=== PATIENT | female | born 1995 | race Caucasian/White ===

== ENCOUNTER 2016-09-15 21:34 | Emergency (ER) | payer OTHER ==
[~2016-09-15] VITALS: Ht 157.5 cm; Wt 52.2 kg
[2016-09-15 21:35] VITALS: BP 121/83
[2016-09-15] MEDS ORDERED: VYVA60CA PO (21:49)
[2016-09-16] MEDS ORDERED: METHOCARBAMOL 500 MG TAB PO ONE (02:00)
[2016-09-16] MEDS ORDERED: ACETAMINOPHEN 325 MG TAB PO ONE (02:00)
== END 2016-09-16 02:19 | disposition left against medical advice (07) ==
LOC: M ED 22:50
DX: R51 Headache (principal); M54.2 Cervicalgia; V43.52XA Car driver injured in collision with other type car in traffic accident, initial encounter; Y92.9 Unspecified place or not applicable; Y93.9 Activity, unspecified; Y99.9 Unspecified external cause status

== ENCOUNTER → 2018-08-31 | Outpatient (REF) | payer OTHER ==
[~2018-08-31] MED LIST: VYVA60CA PO
[2018-08-31 22:45] LABS: CHLAMYDIA DNA AMPLIFICATION NEGATIVE (NEGATIVE); GC DNA AMPLIFICATION NEGATIVE (NEGATIVE)
== END ==
LOC: M LAB REF 11:45
PROVIDERS: ATTEND Physician Assistant
DX: R30.0 Dysuria (principal)

== ENCOUNTER 2018-10-17 11:04 | Day surgery (SDC) | payer OTHER ==
[~2018-10-17] VITALS: Ht 157.5 cm; Wt 60.8 kg
[~2018-10-17 11:04] MED LIST changes: +AMBI12.52 PO; +KETOROLAC 60 MG/2 ML VIAL (J1885) As Ordered ONE; +LIDOCAINE 2% INJ 100 MG/5 ML SDV (FOR ANES.) As Ordered ONE; +MIDAZOLAM INJ 2 MG/2 ML VIAL (J2250) As Ordered ONE; +OCEL3TAB PO; +ONDANSETRON 4MG/2ML VIAL (J2405) As Ordered ONE; +PROPOFOL 200 MG/20 ML VIAL As Ordered ONE; +PROZ40CA PO; +dexameTHASONE 4 MG/ML 1ML VIAL (J1100) As Ordered ONE; +fentaNYL 100 MCG/2 ML INJECTION (J3010) As Ordered ONE; +fentaNYL 250 MCG/5 ML INJECTION (J3010) As Ordered ONE
[2018-10-17 11:26] LABS: HEMATOCRIT 41.9 % (36.0-47.0); HEMOGLOBIN 14.1 g/dl (12.0-15.5); MEAN CORPUSCULAR HEMOGLOBIN 31.8 pg (27.0-33.0); MEAN CORPUSCULAR HGB CONC 33.7 g/dl (32.0-36.5); MEAN CORPUSCULAR VOLUME 94.6 fl (80.0-96.0); PLATELET COUNT, AUTOMATED 253 10^3/uL (150-450); RED BLOOD COUNT 4.43 10^6/uL (4.00-5.40); WHITE BLOOD COUNT 7.8 10^3/uL (4.0-10.0)
[2018-10-17 12:05] LABS: HCG, SERUM QUALITATIVE NEGATIVE (NEGATIVE)
[2018-10-17] MEDS ORDERED: LIDOCAINE W/EPINEPHRINE 1% 20ML VIAL As Ordered ONE (12:32)
[2018-10-17] MEDS ORDERED: IODINE STRONG SOLN 15 ML BTL As Ordered ONE (13:15)
[2018-10-17] MEDS ORDERED: SILVER NITRATE APPLICATOR As Ordered ONE (13:18)
[2018-10-17] MEDS ORDERED: ePHEDrine SULFATE 25 MG/5 ML(5MG/ML) SYRINGE As Ordered ONE (13:21)
[2018-10-17] MEDS ORDERED: METOCLOPRAMIDE INJ 10MG/2ML VIAL (J2765) As Ordered ONE (13:28)
[2018-10-17] MEDS ORDERED: METOCLOPRAMIDE INJ 10MG/2ML VIAL (J2765) IV PRN (14:00)
[2018-10-17] MEDS ORDERED: fentaNYL 100 MCG/2 ML INJECTION (J3010) IV PRN (14:00)
[2018-10-17] MEDS ORDERED: LR 1,000 ML IV SCH (14:00)
[2018-10-17] MEDS ORDERED: PERCOCET 5MG/325MG TAB PO PRN ×2 (14:00)
[2018-10-17] MEDS ORDERED: ONDANSETRON 4MG/2ML VIAL (J2405) IV PRN (14:00)
[2018-10-17] MEDS ORDERED: IBUPROFEN 800 MG TAB PO ONE (15:00)
[2018-10-17 15:35] VITALS: BP 118/65
--- NOTE | 2018-10-18 14:04 | RO ---
DATE OF PROCEDURE: 10/17/2018 PREPROCEDURE DIAGNOSES: Cervical dysplasia and persistent HSIL and perineal skin tags. POSTPROCEDURE DIAGNOSES: Cervical dysplasia and persistent HSIL and perineal skin tags. PROCEDURE: Perineal skin tag excision and loop electrosurgical excision procedure on the cervix. SURGEON: Dr. German Cottrell HOSPICE COORDINATOR: None. ANESTHESIA: General. FLUIDS: 400 mL of lactated Ringers. URINE OUTPUT: 0 mL, the patient voided prior to the case. ESTIMATED BLOOD LOSS: 2 mL. COMPLICATIONS: None. DESCRIPTION OF PROCEDURE: The risks, benefits, indications and alternatives of the procedure were reviewed with the patient and informed consent was obtained. The patient was taken to the operating room where general anesthesia was obtained without difficulty. The patient was then placed in the lithotomy position using Roni stirrups. An examination under anesthesia was then performed, which revealed a normal anteverted uterus. The patient was then prepped and draped in the usual sterile fashion. A surgical time out was then performed where the patient's identity and planned procedure were verified with the operating team. The patient's perineum was inspected. Two small skin tags were identified. Lidocaine with epinephrine were then injected below each skin tag at the base. The skin tags were then removed with Noel scissors and sent to pathology for review. The excision sites were then treated with silver nitrate sticks and hemostasis was achieved. A sterile speculum was then placed in the patient's vagina and the cervix was visualized. A paracervical block was then performed using approximately 10 mL of Lidocaine with epinephrine. Lugol's solution was then copiously applied to the cervix which highlighted the lesion from the 6 to the 8 o'clock position of the cervix along the ectocervix. The LEEP device was then set to 60/60 blend and activated. A looped electrocautery wire was then passed across the external cervical os with a single pass to obtain an ectocervical specimen. Another pass was then performed at the posterior portion of the ectocervix to ensure all abnormal tissue was removed. All tissue obtained was sent to pathology for review. Superficial electrocoagulation of the cervical stroma was then performed with excellent hemostasis achieved. Monsel' solution was then applied to the cervix. All instruments were then removed from the patient's vagina. At the conclusion of the case, the sponge, instrument and needle counts were correct times three. The patient tolerated the procedure well and was taken to the postanesthesia care unit (PACU) in stable condition. CARLITOS
== END 2018-10-17 15:45 | disposition home or self-care (01) ==
LOC: M SDC 11:04
PROVIDERS: ATTEND Obstetrics & Gynecology
DX: N87.9 Dysplasia of cervix uteri, unspecified (principal); L98.8 Other specified disorders of the skin and subcutaneous tissue; R87.613 High grade squamous intraepithelial lesion on cytologic smear of cervix (HGSIL); K21.9 Gastro-esophageal reflux disease without esophagitis; F90.9 Attention-deficit hyperactivity disorder, unspecified type; F32.9 Major depressive disorder, single episode, unspecified; R05 Cough; Z79.899 Other long term (current) drug therapy
CPT/HCPCS: 11200; 36415; 57522; 84703; 85027; 88305; 88307; J1100; J1885; J2250; J2405; J2765; J3010

== ENCOUNTER 2019-03-02 09:53 | Emergency (ER) | payer MEDICAID, OTHER ==
[~2019-03-02] VITALS: Ht 157.5 cm; Wt 72.0 kg
[~2019-03-02 09:53] MED LIST changes: -KETOROLAC 60 MG/2 ML VIAL (J1885) As Ordered ONE; -LIDOCAINE 2% INJ 100 MG/5 ML SDV (FOR ANES.) As Ordered ONE; -MIDAZOLAM INJ 2 MG/2 ML VIAL (J2250) As Ordered ONE; -ONDANSETRON 4MG/2ML VIAL (J2405) As Ordered ONE; -PROPOFOL 200 MG/20 ML VIAL As Ordered ONE; -dexameTHASONE 4 MG/ML 1ML VIAL (J1100) As Ordered ONE; -fentaNYL 100 MCG/2 ML INJECTION (J3010) As Ordered ONE; -fentaNYL 250 MCG/5 ML INJECTION (J3010) As Ordered ONE
[2019-03-02] MEDS ORDERED: ACETAMINOPHEN 325 MG TAB PO ONE (10:45)
[2019-03-02 11:01] LABS: BASO % 0.2 % (0.0-1.0); EOS # 0.1 10^3/uL (0.0-0.5); EOS % 1.2 % (0.0-3.0); HEMATOCRIT 38.9 % (36.0-47.0); HEMOGLOBIN 13.1 g/dl (12.0-15.5); LYMPH # 1.6 10^3/uL (1.5-5.0); LYMPH % 25.5 % (24.0-44.0); MEAN CORPUSCULAR HEMOGLOBIN 31.8 pg (27.0-33.0); MEAN CORPUSCULAR HGB CONC 33.7 g/dl (32.0-36.5); MEAN CORPUSCULAR VOLUME 94.4 fl (80.0-96.0); MONO # 0.6 10^3/uL (0.0-0.8); MONO % 9.9 % (0.0-5.0); NEUTROPHILS # 3.8 10^3/uL (1.5-8.5); PLATELET COUNT, AUTOMATED 218 10^3/uL (150-450); RED BLOOD COUNT 4.12 10^6/uL (4.00-5.40); WHITE BLOOD COUNT 6.1 10^3/uL (4.0-10.0)
[2019-03-02 11:36] LABS: ALBUMIN 3.5 GM/DL (3.2-5.2); ALT/SGPT 16 U/L (12-78); BILIRUBIN,TOTAL 0.3 MG/DL (0.2-1.0); BLOOD UREA NITROGEN 10 MG/DL (7-18); CALCIUM LEVEL 8.8 MG/DL (8.5-10.1); CARBON DIOXIDE LEVEL 27 MEQ/L (21-32); CHLORIDE LEVEL 106 MEQ/L (98-107); CREATININE FOR GFR 0.63 MG/DL (0.55-1.30); GLOMERULAR FILTRATION RATE > 60.0 (>60); GLUCOSE, FASTING 116 MG/DL (70-100); HCG, SERUM QUANTITATIVE 65510 MIU/ML; SODIUM LEVEL 137 MEQ/L (136-145); TOTAL PROTEIN 6.9 GM/DL (6.4-8.2)
--- NOTE | 2019-03-02 12:27 | REP ---
Clinical: Dating and viability. Technique: Transabdominal first trimester obstetrical ultrasound with color Doppler evaluation. Findings: Single live early intrauterine is appreciated. Gestational sac with yolk sac and pole identified. Belfair-rump length of 14 mm corresponds to 7 weeks 5 days gestational age with estimated date of delivery 10/14/2019 . heart rate equals 155 beats per minute. No gross abnormalities are identified. Impression: Single live early intrauterine at 7 weeks 5 days gestational age. Complete anatomical assessment should be performed and 19-20 weeks. Electronically Signed by Hung Pretty MD 03/02/2019 12:19 P
[2019-03-02 13:01] VITALS: BP 92/51
== END 2019-03-02 13:02 | disposition home or self-care (01) ==
LOC: M ED 09:53
DX: Z32.01 Encounter for pregnancy test, result positive (principal); Z3A.01 Less than 8 weeks gestation of pregnancy; M26.601 Right temporomandibular joint disorder, unspecified; Z79.899 Other long term (current) drug therapy

== ENCOUNTER → 2019-03-29 | Outpatient (CLI) | payer MEDICAID ==
[2019-03-29 19:16] LABS: BASO % 0.3 % (0.0-1.0); EOS # 0.1 10^3/uL (0.0-0.5); EOS % 1.1 % (0.0-3.0); HEMATOCRIT 41.6 % (36.0-47.0); HEMOGLOBIN 14.3 g/dl (12.0-15.5); LYMPH # 1.9 10^3/uL (1.5-5.0); LYMPH % 29.1 % (24.0-44.0); MEAN CORPUSCULAR HEMOGLOBIN 33.3 pg (27.0-33.0); MEAN CORPUSCULAR HGB CONC 34.4 g/dl (32.0-36.5); MEAN CORPUSCULAR VOLUME 96.7 fl (80.0-96.0); MONO # 0.5 10^3/uL (0.0-0.8); MONO % 7.4 % (0.0-5.0); NEUTROPHILS # 3.9 10^3/uL (1.5-8.5); NEUTROPHILS % 61.9 % (36.0-66.0); PLATELET COUNT, AUTOMATED 235 10^3/uL (150-450); WHITE BLOOD COUNT 6.4 10^3/uL (4.0-10.0)
[2019-03-29 20:54] LABS: CHLAMYDIA DNA AMPLIFICATION NEGATIVE (NEGATIVE); GC DNA AMPLIFICATION NEGATIVE (NEGATIVE)
[2019-04-01 11:38] LABS: HEPATITIS C VIRUS ABY INDEX 0.1 INDEX (<0.8); HIV 1&2 SCREEN CENTAUR NEGATIVE (NEGATIVE); RUBELLA IgG QUALITATIVE IMMUNE (IMMUNE)
== END ==
LOC: M SMT 11:53
PROVIDERS: ATTEND Advanced Practice Midwife
DX: Z34.81 Encounter for supervision of other normal pregnancy, first trimester (principal); Z3A.00 Weeks of gestation of pregnancy not specified

== ENCOUNTER → 2019-04-26 | Outpatient (REF) | payer MEDICAID | LOC: M LAB REF 13:35 | PROVIDERS: ATTEND Advanced Practice Midwife | DX: Z12.4 Encounter for screening for malignant neoplasm of cervix (principal); R87.89 Other abnormal findings in specimens from female genital organs ==

== ENCOUNTER → 2019-05-22 | Outpatient (CLI) | payer OTHER ==
--- NOTE | 2019-05-22 10:23 | REP ---
Clinical: Anatomical evaluation. Comparison: 03/02/2019 . Findings: Examination demonstrates a single live intrauterine in cephalic presentation. motion is identified by technologist. Placenta is noted anterior and grade zero without evidence for placenta previa or abruption. Amniotic fluid volume is normal. Cervix measures 3.3 cm in length and appears closed. No evidence for nuchal cord. Gestational age by LMP 19 weeks 2 days with MARY 10/14/2019 . Gestational age by current measurements 19 weeks 6 days with MARY 10/10/2019 . FHR equals 147 beats per minute. BPD 4.7 cm 20 weeks 1 day HC 17.5 cm 20 weeks 0 days AC 15.0 cm 20 weeks 2 days FL 3.1 cm 19 weeks 3 days HL 2.9 cm 19 weeks 3 days HC/AC ratio 1.17 Estimated weight 320 grams ( 69 percentile). Anatomical assessment demonstrates normal structures including cranium, choroid plexus, cavum, cerebellum/posterior fossa, facial features, lungs, four-chamber heart/ventricular outflow tracts, diaphragm, stomach, cord insertion/three-vessel cord, kidneys/bladder, and extremities. Impression: Single live intrauterine in cephalic presentation demonstrating appropriate interval growth. Limited evaluation of the spine noted. Remainder of the anatomical assessment is complete and normal. Electronically Signed by Hung Pretty MD 05/22/2019 10:14 A
== END ==
LOC: M RAD 09:14
PROVIDERS: ATTEND Advanced Practice Midwife
DX: Z34.82 Encounter for supervision of other normal pregnancy, second trimester (principal); Z3A.19 19 weeks gestation of pregnancy

== ENCOUNTER → 2019-06-12 | Outpatient (CLI) | payer OTHER ==
--- NOTE | 2019-06-12 17:19 | REP ---
Obstetric sonography: History: Supervision of second trimester study, follow up anatomy. Findings: Scanning through the gravid uterus demonstrates a viable cephalic fetus. motion is observed and heart rate is recorded at 147 beats per minute. An anterior grade 1 placenta is seen without evidence of previa or abruption. Amniotic fluid is subjectively normal. Closed cervical length is 3.3 cm. No extrauterine abnormality is observed. There has been appropriate interval growth. No anomaly is seen. The following anatomic structures are identified today and felt to be unremarkable: cranium, cavum, cerebellum and posterior fossa, face and profile, lungs, four-chamber heart with left and right ventricular outflow tract views, diaphragm, left-sided stomach, abdominal wall cord insertion, three-vessel cord, kidneys and bladder, spine,, upper and lower extremities. Biometry chart: BPD 5.6 cm = 23 weeks 1 day HC 20.9 cm = 23 weeks 0 days AC 17.3 cm = 22 weeks 2 days FL 3.9 cm = 22 weeks 4 days HL 3.6 cm = 22 weeks 2 days HC/AC ratio normal 1.21. Cephalic index normal 0.74. Estimated weight 506 grams, 1 pound 1 ounce, 50th percentile for 22 weeks 2 days. Impression: Viable single intrauterine gestation at 22 weeks 5 days by today's composite sonographic criteria. There is appropriate interval growth. Expected gestational age estimate based on prior sonography is 22 weeks 2 days. MARY by prior sonography October 14, 2019. In conjunction with the prior study, anatomic survey is felt to be complete. Electronically Signed by Joshua Mcconnell MD 06/12/2019 05:53 P
== END ==
LOC: M RAD 14:26
PROVIDERS: ATTEND Advanced Practice Midwife
DX: Z34.92 Encounter for supervision of normal pregnancy, unspecified, second trimester (principal); Z3A.22 22 weeks gestation of pregnancy

== ENCOUNTER 2019-06-21 19:38 | Outpatient (CLI) | payer OTHER ==
[~2019-06-21] VITALS: Ht 160 cm; Wt 74.0 kg
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
== END 2019-06-21 20:52 | disposition home or self-care (01) ==
LOC: M LDO 19:38
PROVIDERS: ATTEND Obstetrics & Gynecology
DX: Z04.3 Encounter for examination and observation following other accident (principal); W21.02XA Struck by soccer ball, initial encounter; Y92.118 Other place in children's home and orphanage as the place of occurrence of the external cause; Y93.66 Activity, soccer; Y99.8 Other external cause status; Z3A.23 23 weeks gestation of pregnancy

== ENCOUNTER → 2019-08-01 | Outpatient (CLI) | payer OTHER, MEDICAID ==
[2019-08-01 17:49] LABS: HEMATOCRIT 34.5 % (36.0-47.0); HEMOGLOBIN 11.4 g/dl (12.0-15.5); PLATELET COUNT, AUTOMATED 200 10^3/uL (150-450); RED BLOOD COUNT 3.45 10^6/uL (4.00-5.40); WHITE BLOOD COUNT 8.3 10^3/uL (4.0-10.0)
== END ==
LOC: M PLALAB 11:53
PROVIDERS: ATTEND Advanced Practice Midwife
DX: Z36.89 Encounter for other specified antenatal screening (principal)

== ENCOUNTER 2019-08-21 00:17 | Outpatient (CLI) | payer OTHER, MEDICAID ==
[2019-08-21 00:35] VITALS: BP 107/62
== END 2019-08-21 02:00 | disposition home or self-care (01) ==
LOC: M LDO 00:17
PROVIDERS: ATTEND Obstetrics & Gynecology
DX: O9A.213 Injury, poisoning and certain other consequences of external causes complicating pregnancy, third trimester (principal); Y04.2XXA Assault by strike against or bumped into by another person, initial encounter; Z3A.32 32 weeks gestation of pregnancy; Y92.9 Unspecified place or not applicable; Y99.0 Civilian activity done for income or pay; X58.XXXA Exposure to other specified factors, initial encounter
CPT/HCPCS: 59025; G0378; G0463

== ENCOUNTER 2019-09-04 23:21 | Outpatient (CLI) | payer OTHER ==
[~2019-09-04] VITALS: Ht 160 cm; Wt 82.6 kg
[~2019-09-04 23:21] MED LIST changes: +ACET1TAB55 PO; +PRENTAB9 PO; +TUMS500C PO
[2019-09-04 23:43] VITALS: BP 127/69
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
== END 2019-09-05 00:51 | disposition home or self-care (01) ==
LOC: M LDO 23:21
PROVIDERS: ATTEND Advanced Practice Midwife
DX: O9A.22 Injury, poisoning and certain other consequences of external causes complicating childbirth (principal); W50.0XXA Accidental hit or strike by another person, initial encounter; Y92.9 Unspecified place or not applicable; Y93.9 Activity, unspecified; Y99.0 Civilian activity done for income or pay; O99.340 Other mental disorders complicating pregnancy, unspecified trimester; F90.9 Attention-deficit hyperactivity disorder, unspecified type; O47.03 False labor before 37 completed weeks of gestation, third trimester; Z3A.34 34 weeks gestation of pregnancy
CPT/HCPCS: 59025; G0378; G0463

== ENCOUNTER → 2019-09-19 | Outpatient (REF) | payer OTHER, MEDICAID | LOC: M SFHCWAGY 12:42 | PROVIDERS: ATTEND Advanced Practice Midwife | DX: Z36.85 Encounter for antenatal screening for Streptococcus B (principal) ==

== ENCOUNTER → 2019-09-19 | Outpatient (REF) | payer OTHER, MEDICAID | LOC: M PLALAB 10:48 | PROVIDERS: ATTEND Advanced Practice Midwife | DX: Z34.83 Encounter for supervision of other normal pregnancy, third trimester (principal) ==

== ENCOUNTER 2019-10-12 11:56 | Inpatient (IN) | payer MEDICAID, OTHER ==
[~2019-10-12] VITALS: Ht 157.5 cm; Wt 84.9 kg
[2019-10-12] VITALS (31 sets, daily range): BP systolic 118–159; BP diastolic 71–105
[2019-10-12 13:54] LABS: HEMATOCRIT 35.7 % (36.0-47.0); HEMOGLOBIN 12.3 g/dl (12.0-15.5); MEAN CORPUSCULAR HEMOGLOBIN 32.1 pg (27.0-33.0); MEAN CORPUSCULAR HGB CONC 34.5 g/dl (32.0-36.5); MEAN CORPUSCULAR VOLUME 93.2 fl (80.0-96.0); PLATELET COUNT, AUTOMATED 186 10^3/uL (150-450); RED BLOOD COUNT 3.83 10^6/uL (4.00-5.40); WHITE BLOOD COUNT 9.9 10^3/uL (4.0-10.0)
[2019-10-12] MEDS ORDERED: LR 1,000 ML IV SCH (15:19)
[2019-10-12] MEDS ORDERED: BUTORPHANOL 2 MG/ML INJ (J0595) IV ONE (15:30)
[2019-10-12] MEDS ORDERED: OXYTOCIN DRIP 30 UNITS in IV 1 EA IV SCH (15:30)
[2019-10-12] MEDS ORDERED: PROMETHAZINE INJ 25 MG/ML VIAL (J2550) IV PRN (15:30)
[2019-10-12] MEDS ORDERED: FENTANYL 2MCG/ML ROPIVACAINE 0.2% IN 0.9% NACL 100ML IVBAG As Ordered ONE (17:25)
[2019-10-12] MEDS ORDERED: FENTANYL/ROPIVACAINE/NACL BAG 100 ML EPIDURAL SCH (18:45)
[2019-10-12] MEDS ORDERED: diphenhydrAMINE 50MG/ML VIAL (J1200) IV PRN (18:45)
[2019-10-12] MEDS ORDERED: ONDANSETRON 4MG/2ML VIAL (J2405 PER 1MG) IV PRN (18:45)
[2019-10-12] MEDS ORDERED: NALOXONE INJ 0.4MG/1ML VIAL (J2310 PER 1MG) IV PRN (18:45)
[2019-10-12] MEDS ORDERED: EPIDURAL COMMENT XX SCH (18:45)
[2019-10-12] MEDS ORDERED: EPIDURAL/PCA KEYS XX PRN (18:45)
[2019-10-12] MEDS ORDERED: REFRIGERATOR IV KEYS XX PRN (18:45)
[2019-10-12] MEDS ORDERED: LACTATED RINGER'S 1000 ML IV PRN (18:45)
[2019-10-12] MEDS ORDERED: ePHEDrine SULFATE 25 MG/5 ML(5MG/ML) SYRINGE IV PRN (18:45)
[2019-10-12 21:56] LABS: ALT/SGPT 161 U/L (12-78); BILIRUBIN,TOTAL 0.4 MG/DL (0.2-1.0); CREATININE FOR GFR 0.63 MG/DL (0.55-1.30); GLOMERULAR FILTRATION RATE > 60.0 (>60); LDH LACTATE DEHYDROGENASE 498 U/L (84-246); URIC ACID 5.6 MG/DL (2.6-6.0)
--- NOTE | 2019-10-12 22:29 | HPEPDOC ---
Obstetrical History & Physical General Date of Admission Oct 12, 2019 at 12:33 History of Present Illness 24-year-old 2, para 0 at 39 weeks 5 days gestational age with complaints of leakage of clear fluid. She reports a gush of clear fluid that occurred approximately 11 AM this is followed by some irregular contractions. She denies any vaginal bleeding. Reports active movement. Her course is been unremarkable. She initiated care first trimester and has been appropriate throughout Chief Complaint: LOF, term Information Provided By: Patient Age: 24 : 2 Livin Care Care: Good Care Dating Final EDC: Oct 14, 2019 Final EDC by: 1st trimester (US) 1st Trimester Date: Mar 02, 2019 Weeks + Days: 7 Estimated Date of Confinement: Oct 14, 2019 Past Medical History Past Obstetrical History : Past Obstetrical History: Primgravida [employer]IER History: Abnormal Pap Past Medical History Surgical History: Other (LEEP) Family History Significant Family History: Cancer, Diabetes Social History Marital Status: Single Psychosocial History: Att. deficit disorder * Smoker: non-smoker Alcohol: Denies Allergies Coded Allergies: No Known Allergies (Unverified , 10/12/19) Medications Scheduled Acetaminophen (Acetaminophen) 325 Mg Tablet, 2 TAB PO DAILY for pain or fever Calcium Carbonate (Tums) 200 Mg Tab.chew, 3 TAB PO QID for cough and congestion No.137/Iron/Folic Acd ( Vitamin Tablet) 1 Each Tablet, 1 TAB PO DAILY Physical Examination Physical Examination GENERAL: Alert and oriented times three. BREAST: . ABDOMEN: Gravid and non-tender to touch. FETUS: Is vertex (VTX) by sterile vaginal examination (SVE), fetus is vertex (VTX) by Howard. HEART RATE: Regular rate and rhythm. LUNGS: Clear to auscultation (CTA). Vital Signs/I&O Vital Signs Date Time Temp Pulse Resp B/P (MAP) Pulse Ox O2 Delivery O2 Flow Rate FiO2 10/12/19 19:07 101 126/78 (94) 10/12/19 15:37 20 10/12/19 12:14 97.9 Laboratory Data 24H LABS Laboratory Tests 2 10/12/19 12:37: Serology Scanned Report Hepatitis B Testing 10/12/19 13:22: Nucleated Red Blood Cells % (auto) 0.0, Glomerular Filtration Rate > 60.0, Uric Acid 5.6, Total Bilirubin 0.4, Aspartate Amino Transf (AST/SGOT) 111H, Alanine Aminotransferase (ALT/SGPT) 161H, Lactate Dehydrogenase 498H CBC/BMP Laboratory Tests 10/12/19 13:22 Pertinent Laboratoy Data Blood Type: O+ HIV: Negative Hepatitis B: Negative Hepatitis C: Negative Rapid Plasma Reagin: Nonreactive Rubella: Immune Chlamydia/Gonorrhea: Negative Group B Streptococcus: Negative Vaginal Examination Dilation: 1cm Effacement: 50% Station: -3 Assessment Variability: Moderate Accelerations: Positive Tocometer Contractions: Yes Frequency: irregular Assessment/Plan Assessment 24-year-old 2, para 0 at 39 weeks 5 days estimate gestational age with premature rupture of membranes. Reassuring status Plan Admit and orient. Customer Support Assistant and consent. Diet: Regular. Group B Streptococcus (GBS) negative. Labs and intravenous (IV) per unit protocol. Counseled on Pitocin and induction of labor (IOL). Anticipate normal spontaneous delivery (). C-S as appropriate. JAVED BHATTI MD. Oct 12, 2019 22:29
[2019-10-13] VITALS (7 sets, daily range): BP systolic 106–165; BP diastolic 61–98
[2019-10-13] MEDS ORDERED: METHYLERGONOVINE MALEATE 0.2 MG/ML VIAL (J2210) As Ordered ONE (00:01)
[2019-10-13 00:18] LABS: CORD GAS ABE A -5.3; CORD GAS ABE V -5.8; CORD GAS HCO3 A 21.4 MEQ/L; CORD GAS HCO3 V 18.2 MEQ/L; CORD GAS O2 SAT A 70.4 %; CORD GAS O2 SAT V 94.2 %; CORD GAS PCO2 A 45.8 mmHg; CORD GAS PCO2 V 31.5 mmHg; CORD GAS PH A 7.287 UNITS; CORD GAS PH V 7.379 UNITS; CORD GAS PO2 A 34.5 mmHg; CORD GAS PO2 V 61.3 mmHg; CORD GAS SBC A 19.5 MEQ/L; CORD GAS SBC V 19.7 MEQ/L; CORD GAS TCO2 A 22.8 MEQ/L; CORD GAS TCO2 V 19.1 MEQ/L
[2019-10-13] MEDS ORDERED: OXYTOCIN DRIP 30 UNITS in IV 1 EA IV SCH ×4 (00:23)
[2019-10-13] MEDS ORDERED: MOM 30ML SUSPENSION UDC PO PRN (00:30)
[2019-10-13] MEDS ORDERED: DIBUCAINE 1% OINTMENT 30GM TOP PRN (00:30)
[2019-10-13] MEDS ORDERED: DOCUSATE SODIUM 100 MG CAP PO PRN (00:30)
[2019-10-13] MEDS ORDERED: MEASLES,MUMPS,RUBELLA VACCINE INJ (MMR-II) (90707) SC SCH (00:30)
[2019-10-13] MEDS ORDERED: RHOGAM 300 MCG (1500 IU) INJ (J2790) IM SCH (00:30)
[2019-10-13] MEDS ORDERED: IBUPROFEN 600 MG TAB PO PRN (00:30)
[2019-10-13] MEDS ORDERED: ACETAMINOPHEN TAB 650MG DOSE (2X325MG) PO PRN (00:30)
[2019-10-13] MEDS ORDERED: miSOPROStol 200 MCG TAB (S0191) PR ONE (00:30)
[2019-10-13] MEDS ORDERED: METHYLERGONOVINE MALEATE 0.2 MG TAB PO PRN (00:30)
[2019-10-13] MEDS ORDERED: ACETAMINOPHEN 500 MG TAB PO PRN (00:30)
[2019-10-13] MEDS ORDERED: IBUPROFEN 800 MG TAB PO PRN (00:30)
--- NOTE | 2019-10-13 00:35 | DNPDOC ---
[facility] Delivery Note Delivery Note DATE OF DELIVERY: 10/13/2019 TIME OF : 2045 GENDER:, Male. APGARS: 8 and 9. WEIGHT:, 3910 grams or 8 pounds 10 ounces. LACERATIONS: Frst-degree midline laceration ANESTHESIA: Epidural. COUNTS: 10 laparotomy sponges accounted for prior to after delivery. One sharps removed delivery field. DELIVERY NOTE: On 10/13/2019 at 2346. This patient, had a spontaneous vaginal delivery of viable male infant, Apgars 8 and 9, and weight was, 3910 grams or 8 pounds 10 ounces. Head was delivered [occiput anterior (OA). Nuchal cord was manually reduced. There was attempted to deliver the right anterior shoulder with gentle downward traction, which was unsuccessful. At which time assistance was called for additional nurses. Emma maneuver and suprapubic was deployed. Rotation of the right anterior shoulder anteriorly releasing the right shoulder. This was then followed by delivery of left posterior shoulder and corpus cord was clamped 2 and was cut and the was taken quickly over to the warmer where nursery staff awaited. A premixed bag of 500 mL of normal saline with 30 units of Pitocin was then bolused along with uterine massage until the uterus was firm. An additional 1000 g of misoprostol placed rectally and Methergine for uterine hemostasis. Total EBL 600 ml. On inspection,. There was a first-degree midline laceration which was repaired with 3-0 Vicryl repeat. On reinspection, cervix, vagina, perineum was grossly intact and hemostatic. Mom and baby in recovery on stable condition. The couples decided to remain in son , JAVED Ordonez MD. Oct 13, 2019 00:35
[2019-10-13] MEDS ORDERED: AMPICILLIN SOD/SULBACTAM SOD 3 GM in D5W MINI-BAG PLUS 100 ML IV ONE ×2 (00:45→07:00)
--- NOTE | 2019-10-13 09:20 | IPNPDOC ---
Progress Note Date of Service: Oct 13, 2019 Day#: 1 Progress Note SUBJECT: Doing well without complaints. Ambulating, voiding and pain is well- controlled. Reports minimal lochia. [+breast feeding] No further fever after 529. Has received two dose of unasyn OBJECTIVE: VITAL SIGNS: Within normal limits, afebrile since 529. Alert and oriented times three. Abdomen: Fundus firm at U-2. Soft, NTTP. Ext: neg calf tenderness. ASSESSMENT: day #1 status post normal spontaneous vaginal delivery complicated by a shoulder dystocia for approximately 50 seconds and hemorrhage. Recovering in stable condition. PLAN: 1. Continue routine care 2. CBC VS, I&O, 24H, Fishbone Vital Signs/I&O Vital Signs Date Time Temp Pulse Resp B/P (MAP) Pulse Ox O2 Delivery O2 Flow Rate FiO2 10/13/19 06:07 100.4 116 16 106/61 (76) I&O- Last 24 Hours up to 6 AM 10/13/19 06:00 Intake Total 1540 ml Output Total 1050 ml Balance 490 ml Laboratory Data 24H LABS Laboratory Tests 2 10/12/19 12:37: Serology Scanned Report Hepatitis B Testing 10/12/19 13:22: Nucleated Red Blood Cells % (auto) 0.0, Glomerular Filtration Rate > 60.0, Uric Acid 5.6, Total Bilirubin 0.4, Aspartate Amino Transf (AST/SGOT) 111H, Alanine Aminotransferase (ALT/SGPT) 161H, Lactate Dehydrogenase 498H 10/13/19 00:09: Cord Arterial Blood pH 7.287, Cord Arterial Blood PCO2 45.8, Cord Arterial Blood PO2 34.5, Cord Arterial Blood HCO3 21.4, Cord Arterial Blood Total CO2 22.8, Cord Arterial Blood Base Excess -5.3, Cord Arterial Base Excess (Standard 19.5, Cord Arterial Bld Oxygen Saturation 70.4, Cord Venous Blood pH 7.379, Cord Venous Blood PCO2 31.5, Cord Venous Blood PO2 61.3, Cord Venous Blood HCO3 18.2, Cord Venous Blood Total CO2 19.1, Cord Venous Base Excess (Actual) -5.8, Cord Venous Base Excess (Standard) 19.7, Cord Venous Blood Oxygen Saturation 94.2 CBC/BMP Laboratory Tests 10/12/19 13:22 JAVED BHATTI MD. Oct 13, 2019 09:20
[2019-10-13] MEDS: PRENATAL VITAMINS CHEWABLE TABLET PO SCH (09:28)
[2019-10-13] MEDS: FLUoxetine 20 MG CAP PO SCH (09:28)
[2019-10-13] MEDS: OMEPRAZOLE 20 MG CAP PO SCH (09:28)
[2019-10-13 10:30] LABS: HEMATOCRIT 32.3 % (36.0-47.0); MEAN CORPUSCULAR HEMOGLOBIN 32.3 pg (27.0-33.0); MEAN CORPUSCULAR HGB CONC 34.1 g/dl (32.0-36.5); MEAN CORPUSCULAR VOLUME 94.7 fl (80.0-96.0); PLATELET COUNT, AUTOMATED 152 10^3/uL (150-450); RED BLOOD COUNT 3.41 10^6/uL (4.00-5.40); WHITE BLOOD COUNT 15.9 10^3/uL (4.0-10.0)
[2019-10-13] MEDS ORDERED: zolPIDEM TARTRATE 5 MG TAB PO ONE (19:30)
[2019-10-14 05:50] VITALS: BP 124/78
[2019-10-14] MEDS: PRENATAL VITAMINS CHEWABLE TABLET PO SCH (08:56)
[2019-10-14] MEDS: OMEPRAZOLE 20 MG CAP PO SCH (08:59)
[2019-10-14] MEDS: FLUoxetine 20 MG CAP PO SCH (08:59)
[2019-10-14] MEDS ORDERED: ACET-683 PO (11:39)
[2019-10-14] MEDS ORDERED: IBUP80TA PO (11:39)
== END 2019-10-14 12:00 | disposition home or self-care (01) | DRG 560 ==
LOC: M LDO 11:56 → M LDI 12:33 → M OBS 10-13 02:45
PROVIDERS: ADMIT Obstetrics & Gynecology; ATTEND Obstetrics & Gynecology
PROC: 10E0XZZ Delivery of Products of Conception, External Approach (ICD-10-PCS; principal; 2019-10-13)
PROC: 0HQ9XZZ Repair Perineum Skin, External Approach (ICD-10-PCS; 2019-10-13)
DX: O42.02 Full-term premature rupture of membranes, onset of labor within 24 hours of rupture (principal); O72.1 Other immediate postpartum hemorrhage; Z3A.39 39 weeks gestation of pregnancy; O70.0 First degree perineal laceration during delivery; O69.81X0 Labor and delivery complicated by cord around neck, without compression, not applicable or unspecified; O66.0 Obstructed labor due to shoulder dystocia; Z37.0 Single live birth

== ENCOUNTER 2019-12-24 18:27 | Emergency (ER) | payer MEDICAID, OTHER ==
[~2019-12-24] VITALS: Ht 157.5 cm; Wt 77.7 kg
[~2019-12-24 18:27] MED LIST changes: +ACET-683 PO; +IBUP80TA PO
[2019-12-24 18:28] VITALS: BP 124/79
[2019-12-24] MEDS ORDERED: LARI1TAB3 (18:34)
[2019-12-24] MEDS ORDERED: VYVA60CA PO ×2 (18:34→19:41)
[2019-12-24] MEDS ORDERED: AMBI12.52 PO (18:35)
== END 2019-12-24 19:48 | disposition home or self-care (01) ==
LOC: M ED 18:27
DX: Z76.0 Encounter for issue of repeat prescription (principal)

== ENCOUNTER 2020-06-26 14:11 | Emergency (ER) | payer MEDICAID, OTHER ==
[~2020-06-26] VITALS: Ht 160 cm; Wt 87.1 kg
[~2020-06-26 14:11] MED LIST changes: +LARI1TAB3
[2020-06-26] MEDS ORDERED: AMPH1CAP14 PO (14:21)
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
[2020-06-26 17:36] VITALS: BP 132/82
== END 2020-06-26 17:39 | disposition home or self-care (01) ==
LOC: M ED 14:11
DX: S00.83XA Contusion of other part of head, initial encounter (principal); Y04.8XXA Assault by other bodily force, initial encounter; Y07.9 Unspecified perpetrator of maltreatment and neglect; Y92.89 Other specified places as the place of occurrence of the external cause; F90.9 Attention-deficit hyperactivity disorder, unspecified type; Z79.899 Other long term (current) drug therapy; Z79.3 Long term (current) use of hormonal contraceptives

== ENCOUNTER 2020-08-28 06:20 | Emergency (ER) | payer MEDICAID, OTHER ==
[~2020-08-28] VITALS: Ht 160 cm; Wt 80.8 kg
[~2020-08-28 06:20] MED LIST changes: +AMPH1CAP14 PO
[2020-08-28] MEDS ORDERED: ZOLP5TAB (06:31)
[2020-08-28] MEDS ORDERED: FLUO20CA22 (06:31)
[2020-08-28] MEDS ORDERED: OMEP-218 (06:31)
[2020-08-28] MEDS ORDERED: LIDOCAINE 5% (LIDODERM) PATCH TD ONE (06:50)
[2020-08-28] MEDS ORDERED: ACETAMINOPHEN 500 MG TAB PO ONE (06:50)
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
[2020-08-28] MEDS ORDERED: LIDO5DIS41 TOP (08:08)
[2020-08-28 08:22] VITALS: BP 123/79
[2020-08-28] MEDS ORDERED: **NOTE PATIENT COMMENT** MISC XX SCH (21:00)
== END 2020-08-28 08:26 | disposition home or self-care (01) ==
LOC: M ED 06:20
DX: S30.0XXA Contusion of lower back and pelvis, initial encounter (principal); W10.8XXA Fall (on) (from) other stairs and steps, initial encounter; Y92.89 Other specified places as the place of occurrence of the external cause; F33.9 Major depressive disorder, recurrent, unspecified; F41.9 Anxiety disorder, unspecified; F90.9 Attention-deficit hyperactivity disorder, unspecified type; Z79.899 Other long term (current) drug therapy; Z79.3 Long term (current) use of hormonal contraceptives

== ENCOUNTER → 2020-11-18 | Outpatient (REF) | payer OTHER ==
[~2020-11-18] MED LIST changes: +FLUO20CA22; +LIDO5DIS41 TOP; +OMEP-218; +ZOLP5TAB
[2020-11-18 12:51] LABS: HEMATOCRIT 40.5 % (36.0-47.0); HEMOGLOBIN 13.3 g/dl (12.0-15.5); MEAN CORPUSCULAR HEMOGLOBIN 31.8 pg (27.0-33.0); MEAN CORPUSCULAR HGB CONC 32.8 g/dl (32.0-36.5); MEAN CORPUSCULAR VOLUME 96.9 fl (80.0-96.0); PLATELET COUNT, AUTOMATED 250 10^3/uL (150-450); RED BLOOD COUNT 4.18 10^6/uL (4.00-5.40); WHITE BLOOD COUNT 6.3 10^3/uL (4.0-10.0)
[2020-11-18 14:47] LABS: HCG, SERUM QUANTITATIVE 8722 MIU/ML; HIV 1&2 SCREEN CENTAUR NEGATIVE (NEGATIVE)
== END ==
LOC: M LAB REF 12:11
PROVIDERS: ATTEND Advanced Practice Midwife
DX: Z36.89 Encounter for other specified antenatal screening (principal)

== ENCOUNTER → 2021-01-18 | Outpatient (CLI) | payer OTHER ==
[2021-01-18 11:55] LABS: BASO % 0.1 % (0.0-1.0); EOS # 0.1 10^3/uL (0.0-0.5); EOS % 0.9 % (0.0-3.0); HEMATOCRIT 36.3 % (36.0-47.0); HEMOGLOBIN 12.1 g/dl (12.0-15.5); LYMPH # 1.7 10^3/uL (1.5-5.0); LYMPH % 20.7 % (24.0-44.0); MEAN CORPUSCULAR HEMOGLOBIN 31.6 pg (27.0-33.0); MEAN CORPUSCULAR HGB CONC 33.3 g/dl (32.0-36.5); MEAN CORPUSCULAR VOLUME 94.8 fl (80.0-96.0); MONO # 0.5 10^3/uL (0.0-0.8); MONO % 5.8 % (2.0-8.0); NEUTROPHILS # 5.9 10^3/uL (1.5-8.5); PLATELET COUNT, AUTOMATED 214 10^3/uL (150-450); RED BLOOD COUNT 3.83 10^6/uL (4.00-5.40); WHITE BLOOD COUNT 8.2 10^3/uL (4.0-10.0)
[2021-01-18 12:35] LABS: ALBUMIN 3.3 GM/DL (3.2-5.2); ALT/SGPT 20 U/L (12-78); BILIRUBIN,TOTAL 0.1 MG/DL (0.2-1.0); BLOOD UREA NITROGEN 9 MG/DL (7-18); CALCIUM LEVEL 8.2 MG/DL (8.5-10.1); CARBON DIOXIDE LEVEL 26 MEQ/L (21-32); CHLORIDE LEVEL 105 MEQ/L (98-107); FREE T4 1.06 NG/DL (0.76-1.46); GLOMERULAR FILTRATION RATE > 60.0 (>60); GLUCOSE, FASTING 80 MG/DL (70-100); MAGNESIUM LEVEL 1.8 MG/DL (1.8-2.4); POTASSIUM SERUM 3.9 MEQ/L (3.5-5.1); SODIUM LEVEL 136 MEQ/L (136-145); TOTAL PROTEIN 6.6 GM/DL (6.4-8.2)
== END ==
LOC: M WUC 09:40
PROVIDERS: ATTEND Physician Assistant
DX: R42 Dizziness and giddiness (principal)

== ENCOUNTER → 2021-04-09 | Outpatient (CLI) | payer OTHER ==
[2021-04-09 15:57] LABS: HEMATOCRIT 35.6 % (36.0-47.0); HEMOGLOBIN 11.7 g/dl (12.0-15.5); MEAN CORPUSCULAR HEMOGLOBIN 32.4 pg (27.0-33.0); MEAN CORPUSCULAR HGB CONC 32.9 g/dl (32.0-36.5); MEAN CORPUSCULAR VOLUME 98.6 fl (80.0-96.0); PLATELET COUNT, AUTOMATED 196 10^3/uL (150-450); RED BLOOD COUNT 3.61 10^6/uL (4.00-5.40); WHITE BLOOD COUNT 10.3 10^3/uL (4.0-10.0)
== END ==
LOC: M LAB 12:34
PROVIDERS: ATTEND Obstetrics & Gynecology
DX: Z34.82 Encounter for supervision of other normal pregnancy, second trimester (principal); Z3A.00 Weeks of gestation of pregnancy not specified

== ENCOUNTER → 2021-06-22 | Outpatient (REF) | payer OTHER ==
[~2021-06-22] MED LIST changes: +OMEP-173; -OMEP-218; +TUMS750C22 PO
== END ==
LOC: M LAB REF 16:09
PROVIDERS: ATTEND Advanced Practice Midwife
DX: Z36.89 Encounter for other specified antenatal screening (principal); Z3A.00 Weeks of gestation of pregnancy not specified

== ENCOUNTER → 2021-12-07 | Outpatient (REF) ==
[2021-12-07 11:03] LABS: RSV AMPLIFICATION NEGATIVE (NEGATIVE)
== END ==
LOC: M EMP 07:23
PROVIDERS: ATTEND Family Medicine
DX: Z20.822 Contact with and (suspected) exposure to COVID-19 (principal)

== ENCOUNTER → 2021-12-28 | Outpatient (REF) ==
[2021-12-28 10:39] LABS: RSV AMPLIFICATION NEGATIVE (NEGATIVE)
== END ==
LOC: M EMP 09:23
PROVIDERS: ATTEND Family Medicine
DX: Z20.822 Contact with and (suspected) exposure to COVID-19 (principal)

== ENCOUNTER 2022-01-25 16:54 | Emergency (ER) | payer OTHER ==
[~2022-01-25] VITALS: Ht 160 cm; Wt 83.2 kg
[2022-01-25 16:55] VITALS: BP 134/79
[2022-01-25] MEDS ORDERED: ATOM40CA9 (17:01)
[2022-01-25] MEDS ORDERED: AMPH1CAP14 (17:01)
[2022-01-25] MEDS ORDERED: TRAZ-252 (17:01)
[2022-01-25] MEDS ORDERED: NORE1TAB94 (17:01)
[2022-01-25 20:08] LABS: BASO % 0.2 % (0.0-1.0); EOS # 0.1 10^3/uL (0.0-0.5); EOS % 1.3 % (0.0-3.0); HEMATOCRIT 40.3 % (36.0-47.0); HEMOGLOBIN 13.6 g/dl (12.0-15.5); LYMPH # 2.7 10^3/uL (1.5-5.0); LYMPH % 29.8 % (24.0-44.0); MEAN CORPUSCULAR HEMOGLOBIN 30.5 pg (27.0-33.0); MEAN CORPUSCULAR HGB CONC 33.7 g/dl (32.0-36.5); MEAN CORPUSCULAR VOLUME 90.4 fl (80.0-96.0); MONO # 0.5 10^3/uL (0.0-0.8); MONO % 5.8 % (2.0-8.0); NEUTROPHILS # 5.8 10^3/uL (1.5-8.5); NEUTROPHILS % 62.8 % (36.0-66.0); PLATELET COUNT, AUTOMATED 247 10^3/uL (150-450); RED BLOOD COUNT 4.46 10^6/uL (4.00-5.40); WHITE BLOOD COUNT 9.2 10^3/uL (4.0-10.0)
[2022-01-25 20:14] LABS: APPEARANCE, URINE CLEAR (CLEAR); BACTERIA, URINE AUTO NEGATIVE (NEGATIVE); BILIRUBIN, URINE AUTO NEGATIVE (NEGATIVE); BLOOD, URINE BLOOD NEGATIVE (NEGATIVE); COLOR, URINE STRAW (YELLOW); GLUCOSE, URINE (UA) AUTO NEGATIVE (NEGATIVE); KETONE, URINE AUTO NEGATIVE (NEGATIVE); LEUKOCYTE ESTERASE, URINE AUTO NEGATIVE (NEGATIVE); NITRITE, URINE AUTO NEGATIVE (NEGATIVE); PROTEIN, URINE AUTO NEGATIVE (NEGATIVE); RBC, URINE AUTO 0 /HPF (0-3); SPECIFIC GRAVITY URINE AUTO 1.014 (1.002-1.035); SQUAMOUS EPITHELIAL CELL UR AU 1 /HPF (0-6); UROBILINOGEN, URINE AUTO 0.2 mg/dL (0.0-2.0); WBC, URINE AUTO 0 /HPF (0-3)
[2022-01-25 20:23] LABS: ALBUMIN 3.6 GM/DL (3.2-5.2); ALT/SGPT 24 U/L (12-78); BILIRUBIN,DIRECT < 0.1 MG/DL (0.0-0.2); BILIRUBIN,TOTAL 0.2 MG/DL (0.2-1.0); BLOOD UREA NITROGEN 15 MG/DL (7-18); CALCIUM LEVEL 9.1 MG/DL (8.5-10.1); CARBON DIOXIDE LEVEL 27 MEQ/L (21-32); CHLORIDE LEVEL 106 MEQ/L (98-107); CREATININE FOR GFR 0.74 MG/DL (0.55-1.30); GLOMERULAR FILTRATION RATE > 60.0 (>60); GLUCOSE, FASTING 90 MG/DL (70-100); HCG, SERUM QUANTITATIVE < 1.0 MIU/ML; LIPASE 110 U/L (73-393); POTASSIUM SERUM 3.9 MEQ/L (3.5-5.1); SODIUM LEVEL 136 MEQ/L (136-145); TOTAL PROTEIN 7.9 GM/DL (6.4-8.2)
[2022-01-25] MEDS ORDERED: GI COCKTAIL 50ML BTL(HYOSCYAMINE/MAALOX/LIDOCAINE VISCOUS)(1:3:1) PO ONE (20:55)
[2022-01-25] MEDS ORDERED: SUCR1SS PO (21:36)
[2022-01-25] MEDS ORDERED: OMEP40CA4 PO (21:36)
== END 2022-01-25 21:46 | disposition home or self-care (01) ==
LOC: M ED 16:54
DX: K29.70 Gastritis, unspecified, without bleeding (principal); F33.9 Major depressive disorder, recurrent, unspecified; F41.9 Anxiety disorder, unspecified; K21.9 Gastro-esophageal reflux disease without esophagitis; Z79.899 Other long term (current) drug therapy; Z79.3 Long term (current) use of hormonal contraceptives

== ENCOUNTER → 2022-06-07 | Outpatient (REF) | payer OTHER, MEDICAID ==
[~2022-06-07] MED LIST changes: +AMPH1CAP14; +ATOM40CA9; +NORE1TAB94; +OMEP40CA4 PO; +SUCR1SS PO; +TRAZ-252
[2022-06-07 14:20] LABS: BASO % 0.4 % (0.0-1.0); EOS # 0.2 10^3/uL (0.0-0.5); HEMATOCRIT 44.3 % (36.0-47.0); HEMOGLOBIN 14.1 g/dl (12.0-15.5); LYMPH # 2.4 10^3/uL (1.5-5.0); LYMPH % 32.9 % (24.0-44.0); MEAN CORPUSCULAR HEMOGLOBIN 30.9 pg (27.0-33.0); MEAN CORPUSCULAR HGB CONC 31.8 g/dl (32.0-36.5); MEAN CORPUSCULAR VOLUME 97.1 fl (80.0-96.0); MONO # 0.5 10^3/uL (0.0-0.8); MONO % 6.6 % (2.0-8.0); NEUTROPHILS # 4.2 10^3/uL (1.5-8.5); NEUTROPHILS % 56.8 % (36.0-66.0); PLATELET COUNT, AUTOMATED 271 10^3/uL (150-450); RED BLOOD COUNT 4.56 10^6/uL (4.00-5.40); WHITE BLOOD COUNT 7.4 10^3/uL (4.0-10.0)
[2022-06-07 15:42] LABS: ALBUMIN 4.1 G/DL (3.2-5.2); ALKALINE PHOSPHATASE 56 U/L (46-116); ALT/SGPT 18 U/L (7.0-40); AST/SGOT 18 U/L (<34); BILIRUBIN,TOTAL 0.4 MG/DL (0.3-1.2); BLOOD UREA NITROGEN 18 MG/DL (9-23); CALCIUM LEVEL 8.9 MG/DL (8.5-10.1); CARBON DIOXIDE LEVEL 28 MMOL/L (20-31); CHLORIDE LEVEL 103 MMOL/L (98-107); CHOLESTEROL LEVEL 172 MG/DL (<200); CHOLESTEROL RISK RATIO 3.16 (<5); CREATININE FOR GFR 0.83 MG/DL (0.55-1.30); FREE T4 1.02 NG/DL (0.89-1.76); GLOMERULAR FILTRATION RATE > 60.0 (>60); GLUCOSE, FASTING 78 MG/DL (60-100); HDL CHOLESTEROL 54.4 MG/DL (>40); LDL CHOLESTEROL 102.2 MG/DL (<100); NON-HDL-C 118 MG/DL; POTASSIUM SERUM 4.8 MMOL/L (3.5-5.1); SODIUM LEVEL 137 MMOL/L (136-145); THYROID STIMULATING HORMONE 0.928 uIU/ML (0.55-4.78); TOTAL 25(OH) VITAMIN D 40.8 NG/ML (20.0-100.0); TOTAL PROTEIN 7.6 G/DL (5.7-8.2); TRIGLYCERIDES LEVEL 77 MG/DL (<150)
[2022-06-07 17:49] LABS: HEMOGLOBIN A1c 4.9 % (4.0-6.0)
== END ==
LOC: M LAB REF 12:43
PROVIDERS: ATTEND Nurse Practitioner Family
DX: Z13.228 Encounter for screening for other metabolic disorders (principal)

== ENCOUNTER → 2022-06-29 | Outpatient (REF) | payer OTHER ==
[2022-06-29 22:10] LABS: RSV AMPLIFICATION NEGATIVE (NEGATIVE)
== END ==
LOC: M LAB REF 21:02
PROVIDERS: ATTEND Physician Assistant
DX: R05.9 Cough, unspecified (principal); R50.9 Fever, unspecified

== ENCOUNTER → 2023-04-11 | Outpatient (REF) | payer OTHER ==
[2023-04-11 18:12] LABS: HEMOGLOBIN A1c 4.9 % (4.0-6.0)
== END ==
LOC: M LAB REF 16:33
PROVIDERS: ATTEND Nurse Practitioner Family
DX: R63.5 Abnormal weight gain (principal)

== ENCOUNTER → 2023-07-27 | Outpatient (REF) | payer OTHER ==
[2023-07-27 18:51] LABS: PERCENT SATURATION 14.3 % (13.2-45.0)
[2023-07-27 18:56] LABS: FERRITIN 27.3 NG/ML (7.3-270.7); FOLATE 19.5 NG/ML (>5.4)
== END ==
LOC: M LAB REF 16:37
PROVIDERS: ATTEND Nurse Practitioner Family
DX: R20.2 Paresthesia of skin (principal)

== ENCOUNTER → 2023-11-17 | Outpatient (REF) | payer OTHER ==
[2023-11-17 18:17] LABS: BLOOD UREA NITROGEN 11 MG/DL (9-23); CALCIUM LEVEL 10.2 MG/DL (8.5-10.1); CARBON DIOXIDE LEVEL 28 MMOL/L (20-31); CHLORIDE LEVEL 101 MMOL/L (98-107); CREATININE FOR GFR 0.89 MG/DL (0.55-1.30); GLOMERULAR FILTRATION RATE > 60.0 (>60); GLUCOSE, FASTING 80 MG/DL (60-100); POTASSIUM SERUM 4.4 MMOL/L (3.5-5.1); SODIUM LEVEL 136 MMOL/L (136-145)
== END ==
LOC: M LAB REF 16:40
PROVIDERS: ATTEND Nurse Practitioner Family
DX: R89.8 Other abnormal findings in specimens from other organs, systems and tissues (principal)

== ENCOUNTER → 2023-11-23 | Outpatient (REF) | payer OTHER ==
[~2023-11-23] MED LIST changes: +FLUO-365; -FLUO20CA22
[2023-11-27 15:11] LABS: HPV APTIMA Negative (Negative)
== END ==
LOC: M SFHCWAGY 17:38
PROVIDERS: ATTEND Nurse Practitioner Family
DX: Z12.4 Encounter for screening for malignant neoplasm of cervix (principal)
CPT/HCPCS: 87624; G0123

== ENCOUNTER → 2023-11-30 | Outpatient (REF) | payer OTHER | LOC: M SFHCWAGY 10:46 | PROVIDERS: ATTEND Nurse Practitioner Family | DX: L91.8 Other hypertrophic disorders of the skin (principal) ==

== ENCOUNTER → 2024-01-30 | Outpatient (REF) | payer OTHER ==
[2024-01-30 15:35] LABS: BLOOD UREA NITROGEN 11 MG/DL (9-23); CALCIUM LEVEL 8.9 MG/DL (8.5-10.1); CARBON DIOXIDE LEVEL 28 MMOL/L (20-31); CHLORIDE LEVEL 104 MMOL/L (98-107); CREATININE FOR GFR 1.06 MG/DL (0.55-1.30); GLOMERULAR FILTRATION RATE > 60.0 (>60); GLUCOSE, FASTING 96 MG/DL (60-100); POTASSIUM SERUM 4.2 MMOL/L (3.5-5.1); SODIUM LEVEL 139 MMOL/L (136-145)
== END ==
LOC: M LAB REF 13:34
PROVIDERS: ATTEND Nurse Practitioner Family
DX: E66.9 Obesity, unspecified (principal)

== ENCOUNTER → 2024-02-08 | Outpatient (CLI) | payer OTHER | LOC: M SLEEP 20:00 | PROVIDERS: ATTEND Nurse Practitioner Adult Health | DX: G47.30 Sleep apnea, unspecified (principal); R06.83 Snoring ==

== ENCOUNTER → 2024-03-29 | Outpatient (REF) | payer OTHER ==
[2024-03-29 20:43] LABS: APPEARANCE, URINE CLEAR (CLEAR); BACTERIA, URINE AUTO NEGATIVE (NEGATIVE); BILIRUBIN, URINE AUTO NEGATIVE (NEGATIVE); BLOOD, URINE BLOOD NEGATIVE (NEGATIVE); COLOR, URINE YELLOW (YELLOW); GLUCOSE, URINE (UA) AUTO NEGATIVE (NEGATIVE); KETONE, URINE AUTO NEGATIVE (NEGATIVE); LEUKOCYTE ESTERASE, URINE AUTO NEGATIVE (NEGATIVE); MUCUS, URINE SMALL (NEGATIVE); NITRITE, URINE AUTO NEGATIVE (NEGATIVE); PROTEIN, URINE AUTO NEGATIVE (NEGATIVE); RBC, URINE AUTO 1 /HPF (0-3); SPECIFIC GRAVITY URINE AUTO 1.017 (1.002-1.035); SQUAMOUS EPITHELIAL CELL UR AU 5 /HPF (0-6); UROBILINOGEN, URINE AUTO 0.2 mg/dL (0.0-2.0); WBC, URINE AUTO 1 /HPF (0-3)
== END ==
LOC: M LAB REF 20:20
PROVIDERS: ATTEND Physician Assistant
DX: N39.0 Urinary tract infection, site not specified (principal)

== ENCOUNTER → 2024-04-10 | Outpatient (REF) | payer OTHER | LOC: M LAB REF 20:49 | PROVIDERS: ATTEND Physician Assistant | DX: J02.9 Acute pharyngitis, unspecified (principal) ==

== ENCOUNTER → 2024-06-12 | Outpatient (REF) | payer OTHER ==
[2024-06-12 14:58] LABS: BASO % 0.4 % (0.0-1.0); EOS # 0.1 10^3/uL (0.0-0.5); EOS % 2.4 % (0.0-3.0); HEMATOCRIT 43.9 % (36.0-47.0); HEMOGLOBIN 14.4 g/dl (12.0-15.5); LYMPH # 2.3 10^3/uL (1.5-5.0); LYMPH % 43.9 % (24.0-44.0); MEAN CORPUSCULAR HGB CONC 32.8 g/dl (32.0-36.5); MEAN CORPUSCULAR VOLUME 94.4 fl (80.0-96.0); MONO # 0.4 10^3/uL (0.0-0.8); MONO % 8.3 % (2.0-8.0); NEUTROPHILS # 2.4 10^3/uL (1.5-8.5); NEUTROPHILS % 44.8 % (36.0-66.0); PLATELET COUNT, AUTOMATED 279 10^3/uL (150-450); RED BLOOD COUNT 4.65 10^6/uL (4.00-5.40); WHITE BLOOD COUNT 5.3 10^3/uL (4.0-10.0)
[2024-06-12 15:05] LABS: ERYTHROCYTE SEDIMENTATION RATE 21 mm/hr (0-20)
[2024-06-12 15:20] LABS: C REACTIVE PROTEIN QUANTITATIV < 0.50 MG/DL (<1.0)
[2024-06-12 15:21] LABS: ALBUMIN 3.9 G/DL (3.2-5.2); ALKALINE PHOSPHATASE 66 U/L (35-104); ALT/SGPT 13 U/L (7.0-40); AST/SGOT 13 U/L (<34); BILIRUBIN,TOTAL 0.5 MG/DL (0.3-1.2); BLOOD UREA NITROGEN 11 MG/DL (9-23); CALCIUM LEVEL 9.3 MG/DL (8.5-10.1); CARBON DIOXIDE LEVEL 27 MMOL/L (20-31); CHLORIDE LEVEL 108 MMOL/L (98-107); CREATININE FOR GFR 1.03 MG/DL (0.55-1.30); GLOMERULAR FILTRATION RATE > 60.0 (>60); GLUCOSE, FASTING 97 MG/DL (60-100); POTASSIUM SERUM 4.6 MMOL/L (3.5-5.1); SODIUM LEVEL 143 MMOL/L (136-145); TOTAL PROTEIN 7.5 G/DL (5.7-8.2)
[2024-06-12 15:22] LABS: RHEUMATOID FACTOR QUANT < 3.5 IU/ML (<14)
[2024-06-14 11:42] LABS: SSA SJOGRENS A <1.0 NEG AI (<1.0 NEG); SSB SJOGRENS B <1.0 NEG AI (<1.0 NEG)
[2024-06-14 13:33] LABS: ANA SCREEN, IFA POSITIVE (NEGATIVE)
[2024-06-14 23:43] LABS: CYCLIC CITRULLINATED PEPTIDE < 16 UNITS (<20)
== END ==
LOC: M LAB REF 13:22
PROVIDERS: ATTEND Nurse Practitioner Family
DX: R21 Rash and other nonspecific skin eruption (principal); Z83.2 Family history of diseases of the blood and blood-forming organs and certain disorders involving the immune mechanism

== ENCOUNTER → 2025-05-02 | Outpatient (REF) | payer OTHER ==
[~2025-05-02] MED LIST changes: -AMBI12.52 PO; +LIDO1ADH93 TOP; -LIDO5DIS41 TOP; +NORE-23; -NORE1TAB94; +ZOLP12.561 PO; -ZOLP5TAB; +ZOLP5TAB9
== END ==
LOC: M SFHCRHEU 09:12
PROVIDERS: ATTEND Internal Medicine Rheumatology
DX: R76.89 Other specified abnormal immunological findings in serum (principal)

== ENCOUNTER → 2025-06-05 | Outpatient (REF) | payer OTHER ==
[~2025-06-05] MED LIST changes: -OCEL3TAB PO; +OCEL3TAB2 PO
[2025-06-05 15:33] LABS: ALT/SGPT 13 U/L (7.0-40); AST/SGOT 13 U/L (<34); C REACTIVE PROTEIN QUANTITATIV < 0.50 MG/DL (<1.0); CALCIUM LEVEL 8.8 MG/DL (8.5-10.1); CARBON DIOXIDE LEVEL 27 MMOL/L (20-31); CHLORIDE LEVEL 108 MMOL/L (98-107); CREATININE FOR GFR 0.83 MG/DL (0.55-1.30); GLOMERULAR FILTRATION RATE > 90.0 (>60); POTASSIUM SERUM 3.9 MMOL/L (3.5-5.1); SODIUM LEVEL 142 MMOL/L (136-145)
[2025-06-05 15:43] LABS: BASO # 0.0 10^3/uL (0.0-0.2); BASO % 0.4 % (0.0-1.0); EOS # 0.1 10^3/uL (0.0-0.5); EOS % 1.9 % (0.0-3.0); LYMPH # 2.5 10^3/uL (1.5-5.0); LYMPH % 47.2 % (24.0-44.0); MONO # 0.4 10^3/uL (0.0-0.8); MONO % 7.3 % (2.0-8.0); NEUTROPHILS # 2.3 10^3/uL (1.5-8.5); NEUTROPHILS % 43.0 % (36.0-66.0); PLATELET COUNT, AUTOMATED 256 10^3/uL (150-450)
[2025-06-09 13:57] LABS: COMPLEMENT C4 23 mg/dL (15-57)
[2025-06-10 00:51] LABS: PTT-LA 41 sec (<=40)
== END ==
LOC: M SFHCRHEU 08:10
PROVIDERS: ATTEND Internal Medicine
DX: R76.89 Other specified abnormal immunological findings in serum (principal)

== ENCOUNTER → 2025-06-09 | Outpatient (CLI) | payer OTHER ==
[2025-06-09 10:32] LABS: APPEARANCE, URINE CLOUDY (CLEAR); BACTERIA, URINE AUTO 1+ (NEGATIVE); BILIRUBIN, URINE AUTO NEGATIVE (NEGATIVE); BLOOD, URINE BLOOD NEGATIVE (NEGATIVE); GLUCOSE, URINE (UA) AUTO NEGATIVE (NEGATIVE); KETONE, URINE AUTO NEGATIVE (NEGATIVE); LEUKOCYTE ESTERASE, URINE AUTO 1+ (NEGATIVE); MUCUS, URINE LARGE (NEGATIVE); NITRITE, URINE AUTO NEGATIVE (NEGATIVE); PROTEIN, URINE AUTO NEGATIVE (NEGATIVE); RBC, URINE AUTO 2 /HPF (0-3); SPECIFIC GRAVITY URINE AUTO 1.030 (1.002-1.035); SQUAMOUS EPITHELIAL CELL UR AU 11 /HPF (0-6); UROBILINOGEN, URINE AUTO 0.2 mg/dL (0.0-2.0); WBC, URINE AUTO 7 /HPF (0-3)
[2025-06-09 10:47] LABS: TOTAL PROTEIN,RANDOM URINE 28.6 MG/DL (0.0-14.0)
[2025-06-11 12:12] LABS: COMPLEMENT C4 22 mg/dL (15-57)
[2025-06-12 15:26] LABS: COMPLEMENT TOTAL (CH50) 52 U/mL (31-60)
[2025-06-13 08:26] LABS: PTT-LA 39 sec (<=40)
== END ==
LOC: M PLALAB 08:10
PROVIDERS: ATTEND Internal Medicine
DX: R76.89 Other specified abnormal immunological findings in serum (principal)

== ENCOUNTER → 2025-06-09 | Outpatient (CLI) | payer OTHER ==
[2025-06-09 10:46] LABS: FREE T4 1.24 NG/DL (0.89-1.76)
[2025-06-09 10:48] LABS: LUTEINIZING HORMONE 5.0 mIU/ML
[2025-06-09 10:49] LABS: ESTRADIOL 22.9 PG/ML; PROLACTIN 14.45 NG/ML
[2025-06-09 10:50] LABS: PROGESTERONE 0.34 NG/ML
== END ==
LOC: M PLALAB 08:07
PROVIDERS: ATTEND Nurse Practitioner Family
DX: N93.9 Abnormal uterine and vaginal bleeding, unspecified (principal)

== ENCOUNTER → 2025-06-09 | Outpatient (CLI) | payer OTHER ==
[2025-06-09 10:44] LABS: HCG, SERUM QUALITATIVE NEGATIVE (NEGATIVE)
== END ==
LOC: M PLALAB 08:03
PROVIDERS: ATTEND Nurse Practitioner Family
DX: N92.6 Irregular menstruation, unspecified (principal)

== ENCOUNTER → 2025-06-12 | Outpatient (REF) | payer OTHER | LOC: M LAB REF 19:37 | PROVIDERS: ATTEND Student in an Organized Health Care Education/Training Program | DX: R30.0 Dysuria (principal) ==